=== PATIENT | male | born 1955 | race Two or more races ===

== ENCOUNTER 2020-08-18 14:14 | Emergency (ER) | payer MEDICARE, OTHER ==
[~2020-08-18] VITALS: Ht 162.6 cm; Wt 72.2 kg
[~2020-08-18 14:14] MED LIST: ASPI325T80 PO; DIAZ10TA PO; DOXA2TAB9 PO; FINA5TAB4 PO; OXYC1TAB18 PO; PARO20TA98 PO
[2020-08-18 14:32] VITALS: BP 136/92
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
--- NOTE | 2020-08-18 16:00 | NUR ---
PT TO CT
--- NOTE | 2020-08-18 16:56 | NUR ---
DISCHARGE INSTRUCTIONS REVIEWED WITH PT. ALL QUESTIONS ANSWERED AT THIS TIME.
== END 2020-08-18 16:58 | disposition home or self-care (01) ==
LOC: ED 14:44
DX: S16.1XXA Strain of muscle, fascia and tendon at neck level, initial encounter (principal); R51.9 Headache, unspecified; F17.210 Nicotine dependence, cigarettes, uncomplicated; V09.29XA Pedestrian injured in traffic accident involving other motor vehicles, initial encounter; Y93.89 Activity, other specified; Y92.89 Other specified places as the place of occurrence of the external cause; Y99.8 Other external cause status
CPT/HCPCS: 70450; 72125; 99285